=== PATIENT | male | born 1945 | race Caucasian/White ===

== ENCOUNTER → 2018-11-20 | Outpatient (CLI) | payer MEDICARE, BC ==
[2018-11-20 16:20] LABS: HIV 1/2 Antibodies Non-Reactive; HIV-1p24 Antigen Non-Reactive
== END ==
LOC: COL.LAB 15:22
PROVIDERS: Orthopaedic Surgery
DX: Z01.812 Encounter for preprocedural laboratory examination (principal); M17.12 Unilateral primary osteoarthritis, left knee

== ENCOUNTER 2020-07-21 10:41 | Inpatient (IN) | payer MEDICARE, BC ==
[~2020-07-21] VITALS: Ht 182.9 cm; Wt 98.2 kg
[2020-07-21 12:28] VITALS: BP 114/80; PULSE 84; TEMP 98.1
[2020-07-21] MEDS ORDERED: OMEGA-31 SGL PO (13:11)
[2020-07-21] MEDS ORDERED: PRESERVISION1 SGL PO (13:11)
[2020-07-21] MEDS ORDERED: ZOCOR 20MG20 MG PO (13:12)
[2020-07-21] MEDS ORDERED: COLACE 100100 MG/CAP PO (13:13)
[2020-07-21] MEDS ORDERED: DAILY MULTIPLE1 T19 PO (13:13)
[2020-07-21] MEDS ORDERED: FLONASEALLERGY NS (13:14)
[2020-07-21] MEDS ORDERED: METAMUCIL3.4 GM/DOS PO (13:14)
[2020-07-21] MEDS ORDERED: ASPIRIN 81M81 MG/TA2 PO (13:16)
--- NOTE | 2020-07-21 13:59 | NUR ---
PT ADMITTED AMBULATORY TO ROOM 326 WITH REPORT FROM MELBER. DR NOLASCO, DR. MCCABE AND ANESTHESIA NOTIFIED OF PT ARRIVAL. PT TO GO TO ERCP WITH DR. NOLASCO. PT IS A/O X3 RATING PAIN 3/10 AT THIS TIME. CONSENT SIGNED ON CHART. PLAN ON [facility] TOMMORROW AFTER TODAYS ERCP.
--- NOTE | 2020-07-21 14:24 | NUR ---
PT TO SURGERY AT THIS TIME.
[2020-07-21 15:30] VITALS: BP 101/72; PULSE 69; TEMP 98
[2020-07-21 15:45] VITALS: BP 104/60; PULSE 60; TEMP 98
[2020-07-21 16:50] VITALS: BP 112/58; PULSE 73; TEMP 98.3
--- NOTE | 2020-07-21 20:00 | NUR ---
Bedside report received, assumed care for production shift supervisor. Assessment complete. A&Ox3. VS stable. Denies pain/nausea/shortness of breath. Tolerated diet. Voiding without difficulty. Plan of care discussed for this shift to include NPO at midnight in prep for surgery tomorrow. Verbalized understanding. IV to left wrist with [email or web address]. Denies questions/concerns. Call light in reach. Will monitor.
[2020-07-21 20:06] VITALS: BP 114/78; PULSE 89; TEMP 99
[2020-07-22] VITALS (13 sets, daily range): BP systolic 107–133; BP diastolic 47–67; PULSE 71–98; TEMP 97–98.9
--- NOTE | 2020-07-22 09:22 | NUR ---
PT RESTING IN BED DENIES NEEDS, REPORTS SLEEPING WELL OVER NOC. PLAN ON SURGERY LATER THIS AM. VSS, PT DENIES NEEDS.
--- NOTE | 2020-07-22 10:26 | NUR ---
Lab Manager met with patient and patient's to discuss discharge planning. Patient lives in [place] with his Alejandra (ph#[phone]) and sees Jaky Talbot, Nurse Practitioner for primary care. Patient obtains medications from either the [facility] or [facility] in [place]. Patient uses a CPAP and no other DME. Patient reports independence with ADLS. Patient states he believes he has a Living Will and DPOA-HC but SW did not locate copy in EMR. Patient states it may be his children, Inocente and Susannah but he's not sure. Patient plans to return home at discharge. SW will continue to follow as needed.
--- NOTE | 2020-07-22 10:35 | NUR ---
PT TO SURGERY PER BED WITH CHIP, CONSENT SIGNED ON CHART.
--- NOTE | 2020-07-22 13:09 | NUR ---
PT TO ROOM 326 PER BED WITH REPORT FROM PAOLO BAPTISTE [email or web address]. PT IS A/O X4, LUNGS CLEAR, BOWL SOUNDS HYPO. ABDOMINAL INCISIONS X4 WITH BANDAIDS CDI. IV TO LFA. SCDS BILATERALLY. PT DENIES PAIN OR NEEDS AT THIS TIME. AT BEDSIDE. WATER PROVIDED .
--- NOTE | 2020-07-22 20:00 | NUR ---
Report received, assumed care for shift engineer. Assessment complete. VS stable. A&Ox3. Denies pain/nausea/shortness of breath. Plan of care discussed for this shift to include HS meds/pain meds/calling for needs. Verbalizes understanding. INTd at this time-tolerating PO/voiding well. Denies needs. Call light in reach. Will monitor.
--- NOTE | 2020-07-22 22:00 | NUR ---
Tramadol 100mg given at this time for pain to abdomen-rating 4/10-described as burning. Will continue to monitor.
--- NOTE | 2020-07-23 00:45 | NUR ---
Resting eyes closed. No s/s of pain noted.
[2020-07-23 04:16] VITALS: BP 124/71; PULSE 65; TEMP 97.8
--- NOTE | 2020-07-23 08:00 | NUR ---
PATIENT IS A&O. VSS. REPORTS PAIN IS WELL MANAGED AT THIS TIME. ABD LAP SITES X4 ARE CD&I. PATIENT DENIES C/O N/V. BREAKFAST TRAY AT BEDSIDE. LEFT WRIST IV TO INT. HEAD TO TOE ASSESSMENT WNL. STUDENT NURSE WORKING WITH PATIENT TODAY, SEE STUDENT ASSESSMENT. PATIENT HOPING TO DISCHARGE HOME LATER TODAY.
[2020-07-23 08:18] VITALS: BP 118/66; PULSE 83; TEMP 97.8
[2020-07-23 11:54] VITALS: BP 107/69; PULSE 65; TEMP 97.8
[2020-07-23 15:45] VITALS: BP 107/67; PULSE 68; TEMP 97.8
[2020-07-23] MEDS ORDERED: ULTRAM 50MG TAB50 MG PO (16:54)
--- NOTE | 2020-07-23 17:35 | NUR ---
PATIENT DISCHARGING HOME VIA AMBULATORY WITH TO PERSONAL VEHICLE. GAVE DISCHARGE INSTRUCTIONS, PRESCRIPTION, AND PATIENT TO CALL FOR F/U APT IN [place]. DC'D LEFT FORARM IV, COVERED SITE WITH [employer]. PATIENT DRESSED, PACKED AND ESCORTED OUT.
== END 2020-07-23 17:35 | disposition home or self-care (01) | DRG 419 ==
LOC: SURG 10:41
PROVIDERS: Internal Medicine Gastroenterology; ADMIT Surgery
PROC: 0FC98ZZ Extirpation of Matter from Common Bile Duct, Via Natural or Artificial Opening Endoscopic (ICD-10-PCS; 2020-07-21)
PROC: 0FT44ZZ Resection of Gallbladder, Percutaneous Endoscopic Approach (ICD-10-PCS; principal; 2020-07-21 14:30)
DX: K80.62 Calculus of gallbladder and bile duct with acute cholecystitis without obstruction (principal); E78.5 Hyperlipidemia, unspecified; G47.30 Sleep apnea, unspecified; Z96.652 Presence of left artificial knee joint
CPT/HCPCS: C1769; J0690; J1100; J1956; J2405; J2704; J3010; J3480; J7030; J7120; Q9967